=== PATIENT | female | born 1950 | race Caucasian/White ===

== ENCOUNTER 2017-08-31 16:11 | Inpatient (IN) ==
[2017-09-01 09:37] LABS: BASOPHILS % (AUTO) 0.6 % (0.2-1.0); EOSINOPHILS % (AUTO) 0.7 % (0.9-2.9); HEMATOCRIT 38.6 % (36.0-47.0); HEMOGLOBIN 13.7 g/dL (12.0-16.0); LYMPHOCYTES # (AUTO) 0.8 X10^3/uL (1.3-2.9); LYMPHOCYTES % (AUTO) 28.9 % (21.0-51.0); MEAN CORPUSCULAR HEMOGLOBIN 32.4 pg (27.0-34.0); MEAN CORPUSCULAR HGB CONC 35.4 g/dL (33.0-35.0); MEAN CORPUSCULAR VOLUME 91.6 fL (80.0-100.0); MEAN PLATELET VOLUME 8.1 fL (7.4-11.0); MONOCYTES # (AUTO) 0.2 x10^3/uL (0.3-0.8); MONOCYTES % (AUTO) 6.5 % (0.0-13.0); NEUTROPHILS # (AUTO) 1.8 x10^3/uL (2.2-4.8); NEUTROPHILS % (AUTO) 63.3 % (42.0-75.0); PLATELET COUNT 158 X10^3/uL (150.0-450.0); RED BLOOD COUNT 4.21 X10^6/uL (3.5-5.4); WHITE BLOOD COUNT 2.9 X10^3/uL (3.6-10.0)
[2017-09-01 10:01] LABS: ALANINE AMINOTRANSFERASE 35 Units/L (12-78); ALBUMIN 4.4 g/dL (3.4-5.0); ALKALINE PHOSPHATASE 89 Units/L (46-116); ASPARTATE AMINO TRANSFERASE 32 Units/L (15-37); BLOOD UREA NITROGEN 12 mg/dL (7-18); CALCIUM 9.3 mg/dL (8.5-10.1); CREATININE 0.99 mg/dL (0.55-1.02); TOTAL PROTEIN 8.3 g/dL (6.4-8.2); eGFR NON BLACK RACES 59 (>60)
[2017-09-01 10:07] LABS: CHLORIDE 76 mmol/L (98-107); SODIUM 110 mmol/L (136-145)
[2017-09-01] MEDS: NS 1000 ML 1,000 ML IV SCH ×3 (10:47→18:42)
[2017-09-01 11:43] VITALS: BMI 24.9
[2017-09-01 12:17] LABS: FREE T4 (FREE THYROXINE) 0.96 ng/dL (0.76-1.46)
--- NOTE | 2017-09-01 13:29 | DR.UPDATE ---
H&P Update History and Physical Update: RETURNED ON 08/31/2017 FOR A FOLLOW UP VISIT. LABS WERE OBTAINED AND REVEALED A SODIUM LEVEL OF 111. ORDERS FOR ADMISSION WERE GIVEN ON 08/31/17, HOWEVER, PATIENT DID NOT ARRIVE TO THE HOSPITAL UNTIL THIS MORNING. SHE REPORTS COMPLAINTS OF GENERALIZED WEAKNESS AND SHORTNESS OF BREATH. PATIENT WAS STARTED ON NORMAL SALINE AT 125ML/HR. TODAY, WE WILL OBTAIN A CHEST CT WITH CONTRAST DUE TO SHORTNESS OF BREATH, HYPONATREMIA, AND TO RULE OUT MALIGNANT PROCESS. WE WILL ALSO CHECK A URINE SODIUM LEVEL, SERUM OSMOLALITY, TSH, AND FREE T4. OTHERWISE, WE WILL FOLLOW UP WITH AM LABS AND CONTINUE TO MONITOR PATIENT. Changes noted: NO Yes with the following:
[2017-09-01] MEDS ORDERED: CATAPRES-TTS-2 TD SCH (14:00)
--- NOTE | 2017-09-01 14:25 | CT ---
HISTORY: Shortness of breath Study: CT chest with contrast Comparison: None Technique: Multiple axial images of the chest were obtained from the thoracic inlet to the upper abdo men after the administration of IV contrast. Dose reduction techniques including Automated Exposure Control (AEC) and adjustment of mA and kV were utilized. Findings: Lungs are hyperinflated with moderate centrilobular emphysematous changes present No vascular abnorma lity is identified. Normal appearance of the heart and pericardium. The aorta appears normal in cours e and caliber. The lungs are clear without effusion, consolidation, or pneumothorax. Airways are bean nt. There is a small sliding hiatal The soft tissues and osseous structures appear intact. On limited visualization of the upper abdomen bilateral renal collecting systems appear prominent. IMPRESSION: 1. Moderate emphysematous changes without acute disease. 2. Small hiatal hernia. 3. Prominence of the bilateral renal collecting systems is noted on limited visualization of the uppe r abdomen. Consider correlation with renal ultrasound if there is concern for acute obstruction. Reported By:
[2017-09-01] MEDS: COLACE CAP 100 MG PO SCH (14:45)
[2017-09-01] MEDS: LOPRESSOR TAB 25 MG PO SCH ×2 (14:45→22:10)
[2017-09-01] MEDS: ASPIRIN 81 MG CHEWTAB PO SCH (14:45)
[2017-09-01] MEDS: PROTONIX TAB 40 MG PO SCH (14:46)
[2017-09-01] MEDS: PLAVIX PO SCH (14:46)
[2017-09-01] MEDS: CHECK PATCH XX SCH (17:02)
[2017-09-01] MEDS: AMBIEN PO PRN (22:10)
[2017-09-02] MEDS: NS 1000 ML 1,000 ML IV SCH ×3 (04:28→17:42)
[2017-09-02 06:54] LABS: BASOPHILS % (AUTO) 0.4 % (0.2-1.0); EOSINOPHILS % (AUTO) 0.4 % (0.9-2.9); HEMATOCRIT 33.5 % (36.0-47.0); HEMOGLOBIN 12.3 g/dL (12.0-16.0); LYMPHOCYTES # (AUTO) 0.6 X10^3/uL (1.3-2.9); LYMPHOCYTES % (AUTO) 25.4 % (21.0-51.0); MEAN CORPUSCULAR HGB CONC 36.7 g/dL (33.0-35.0); MEAN CORPUSCULAR VOLUME 92.6 fL (80.0-100.0); MEAN PLATELET VOLUME 8.3 fL (7.4-11.0); MONOCYTES # (AUTO) 0.2 x10^3/uL (0.3-0.8); MONOCYTES % (AUTO) 6.9 % (0.0-13.0); NEUTROPHILS # (AUTO) 1.7 x10^3/uL (2.2-4.8); NEUTROPHILS % (AUTO) 66.9 % (42.0-75.0); PLATELET COUNT 127 X10^3/uL (150.0-450.0); RED BLOOD COUNT 3.61 X10^6/uL (3.5-5.4); RED CELL DISTRIBUTION WIDTH 12.9 % (11.6-16.5); WHITE BLOOD COUNT 2.5 X10^3/uL (3.6-10.0)
[2017-09-02 07:20] LABS: ALANINE AMINOTRANSFERASE 23 Units/L (12-78); ALBUMIN 3.3 g/dL (3.4-5.0); ALKALINE PHOSPHATASE 70 Units/L (46-116); ASPARTATE AMINO TRANSFERASE 18 Units/L (15-37); BLOOD UREA NITROGEN 8 mg/dL (7-18); CALCIUM 8.4 mg/dL (8.5-10.1); CARBON DIOXIDE 23.4 mmol/L (21-32); CHLORIDE 95 mmol/L (98-107); CREATININE 0.67 mg/dL (0.55-1.02); SODIUM 126 mmol/L (136-145); TOTAL PROTEIN 6.3 g/dL (6.4-8.2); eGFR NON BLACK RACES > 60 (>60)
[2017-09-02] MEDS: COLACE CAP 100 MG PO SCH (09:37)
[2017-09-02] MEDS: ASPIRIN 81 MG CHEWTAB PO SCH (09:37)
[2017-09-02] MEDS: LOPRESSOR TAB 25 MG PO SCH ×2 (09:37→21:30)
[2017-09-02] MEDS: CHECK PATCH XX SCH ×2 (09:37→21:00)
[2017-09-02] MEDS: PLAVIX PO SCH (09:38)
[2017-09-02] MEDS: PROTONIX TAB 40 MG PO SCH (09:38)
[2017-09-02] MEDS: AMBIEN PO PRN (21:33)
[2017-09-03] MEDS: NS 1000 ML 1,000 ML IV SCH (02:15)
[2017-09-03 04:31] LABS: BASOPHILS % (AUTO) 0.5 % (0.2-1.0); EOSINOPHILS % (AUTO) 0.7 % (0.9-2.9); HEMATOCRIT 31.1 % (36.0-47.0); HEMOGLOBIN 10.9 g/dL (12.0-16.0); LYMPHOCYTES # (AUTO) 0.7 X10^3/uL (1.3-2.9); LYMPHOCYTES % (AUTO) 28.6 % (21.0-51.0); MEAN CORPUSCULAR HEMOGLOBIN 32.9 pg (27.0-34.0); MEAN CORPUSCULAR HGB CONC 35.1 g/dL (33.0-35.0); MEAN CORPUSCULAR VOLUME 93.7 fL (80.0-100.0); MEAN PLATELET VOLUME 8.1 fL (7.4-11.0); MONOCYTES # (AUTO) 0.1 x10^3/uL (0.3-0.8); MONOCYTES % (AUTO) 5.7 % (0.0-13.0); NEUTROPHILS # (AUTO) 1.7 x10^3/uL (2.2-4.8); NEUTROPHILS % (AUTO) 64.5 % (42.0-75.0); PLATELET COUNT 131 X10^3/uL (150.0-450.0); RED BLOOD COUNT 3.31 X10^6/uL (3.5-5.4); RED CELL DISTRIBUTION WIDTH 13.1 % (11.6-16.5); WHITE BLOOD COUNT 2.6 X10^3/uL (3.6-10.0)
[2017-09-03 04:37] LABS: ALANINE AMINOTRANSFERASE 16 Units/L (12-78); ALBUMIN 2.9 g/dL (3.4-5.0); ALKALINE PHOSPHATASE 63 Units/L (46-116); ASPARTATE AMINO TRANSFERASE 10 Units/L (15-37); BLOOD UREA NITROGEN 6 mg/dL (7-18); CALCIUM 8.1 mg/dL (8.5-10.1); CARBON DIOXIDE 22.9 mmol/L (21-32); CHLORIDE 102 mmol/L (98-107); CREATININE 0.72 mg/dL (0.55-1.02); SODIUM 132 mmol/L (136-145); TOTAL PROTEIN 5.8 g/dL (6.4-8.2); eGFR NON BLACK RACES > 60 (>60)
[2017-09-03 08:10] VITALS: BP 137/63
[2017-09-03] MEDS: COLACE CAP 100 MG PO SCH (08:44)
[2017-09-03] MEDS: LOPRESSOR TAB 25 MG PO SCH (08:44)
[2017-09-03] MEDS: CHECK PATCH XX SCH (08:44)
[2017-09-03] MEDS: ASPIRIN 81 MG CHEWTAB PO SCH (08:44)
[2017-09-03] MEDS: PLAVIX PO SCH (08:44)
[2017-09-03] MEDS: PROTONIX TAB 40 MG PO SCH (09:16)
--- NOTE | 2017-09-03 17:01 | PCM.PROG ---
Progress Note - Progress Note for Day of Date: 09/02/17 - Subjective Subjective: WAS ADMITTED FOR HYPONATREMIA. TODAY, SHE IS ALERT AND ORIENTED, SITTING UP IN BED ON MORNING ROUNDS. SHE IS NOTED WITH COMPLAINTS OF GENERALIZED WEAKNESS. ON EXAMINATION, HEART IS REGULAR IN RATE AND RHYTHM. BILATERAL LUNGS ARE CLEAR TO AUSCULTATION. ABDOMEN IS ROUND, SOFT, AND NON- TENDER WITH NORMAL BOWEL SOUNDS NOTED IN ALL QUADRANTS. HER VITALS TODAY ARE 99.6-53-20-100%-110/57. LABS WERE OBTAINED. ABNORMAL LAB VALUES INCLUDE THE FOLLOWING: WBC 2.5, HCT 33.5, PLT COUNT 127, SODIUM INCREASED FROM 110 TO 126, CHLORIDE 95, CALCIUUM 8.4, TOTAL PROTEIN 6.3, ALBUMIN 3.3, URINE OSMOLALITY 238. CHEST CT WAS OBTAINED YESTERDAY AND REVEALED Moderate emphysematous changes without acute disease. Small hiatal hernia. Prominence of the bilateral renal collecting systems is noted on limited visualization of the upper abdomen. Consider correlation with renal ultrasound if there is concern for acute obstruction. SHE WAS RECEIVING LISINOPRIL/HCTZ AT HOME. WE WILL DISCONTINUE THIS. WE WILL CONTINUE WITH IV FLUIDS AND CURRENT PLAN OF CARE TODAY. OTHERWISE, WE WILL FOLLOW UP WITH AM LABS AND CONTINUE TO MONITOR PATIENT. - Past Medical Family Social History Past Med/Fam/Surg Hx: No changes since H&P Allergies: Allergies No Known Drug Allergies Allergy (Verified 09/01/17 08:37) - Review of Systems ROS: No change since H&P - Vital Signs and I&O's Vital Signs: Temperature 98.7 F Pulse Rate [Right Brachial] 61 Respiratory Rate 19 Blood Pressure [Right Arm] 137/63 O2 Sat by Pulse Oximetry 97 Intake and Output: Intake & Output 09/01/17 09/02/17 09/03/17 09/04/17 11:59 11:59 11:59 11:59 Intake Total 6274 / 7124 3489 / 4805 Balance 3174 / 3174 9529 / 4807 - Physical Exam Oriented: Normal Eyes: Normal Ear: Normal Nose: Normal Throat: Normal Respiratory: Normal Cardiovascular: Normal : Normal Auscultation: Bowel Sounds: Normal Palpation: Normal Tenderness: Normal Skin: Normal Musculoskeletal: Normal Psychiatric: Normal Mood Description: Calm Affect: Normal Speech Pattern: Clear, Appropriate - Laboratory and Diagnostics Result Diagrams: 09/03/17 04:10 06/24/18 04:10 Labs: Laboratory WBC 2.6 X10^3/uL (3.6-10.0) L 09/03/17 04:10 RBC 3.31 X10^6/uL (3.5-5.4) L 09/03/17 04:10 Hgb 10.9 g/dL (12.0-16.0) L 09/03/17 04:10 Hct 31.1 % (36.0-47.0) L 09/03/17 04:10 MCV 93.7 fL (80.0-100.0) 09/03/17 04:10 MCH 32.9 pg (27.0-34.0) 09/03/17 04:10 MCHC 35.1 g/dL (33.0-35.0) H 09/03/17 04:10 RDW 13.1 % (11.6-16.5) 09/03/17 04:10 Plt Count 131 X10^3/uL (150.0-450.0) L 09/03/17 04:10 MPV 8.1 fL (7.4-11.0) 09/03/17 04:10 Neut % (Auto) 64.5 % (42.0-75.0) 09/03/17 04:10 Lymph % (Auto) 28.6 % (21.0-51.0) 09/03/17 04:10 [place] % (Auto) 5.7 % (0.0-13.0) 09/03/17 04:10 Eos % (Auto) 0.7 % (0.9-2.9) L 09/03/17 04:10 Baso % (Auto) 0.5 % (0.2-1.0) 09/03/17 04:10 Neut # (Auto) 1.7 x10^3/uL (2.2-4.8) L 09/03/17 04:10 Lymph # (Auto) 0.7 X10^3/uL (1.3-2.9) L 09/03/17 04:10 [place] # (Auto) 0.1 x10^3/uL (0.3-0.8) L 09/03/17 04:10 Eos # (Auto) 0.0 x10^3/uL (0.0-0.2) 09/03/17 04:10 Baso # (Auto) 0.0 X10^3/uL (0.0-0.1) 09/03/17 04:10 Absolute Nucleated RBC 0.0 /100WBC 09/03/17 04:10 Sodium 132 mmol/L (136-145) L 09/03/17 04:10 Corrected Sodium TNP 09/03/17 04:10 Potassium 3.6 mmol/L (3.5-5.1) 09/03/17 04:10 Chloride 102 mmol/L (98-107) 09/03/17 04:10 Carbon Dioxide 22.9 mmol/L (21-32) 09/03/17 04:10 BUN 6 mg/dL (7-18) L 09/03/17 04:10 Creatinine 0.72 mg/dL (0.55-1.02) 09/03/17 04:10 Est GFR (MDRD) Af Amer > 60 (>60) 09/03/17 04:10 Est GFR (MDRD) Non-Af > 60 (>60) 09/03/17 04:10 Glucose 90 mg/dL (65-99) 09/03/17 04:10 Calculated Osmolality 238 mOsm/kg (285-295) L 09/01/17 09:25 Calcium 8.1 mg/dL (8.5-10.1) L 09/03/17 04:10 Corrected Calcium 9.0 mg/dL (8.5-10.1) 09/03/17 04:10 Total Bilirubin 0.30 mg/dL (0.2-1.0) 09/03/17 04:10 AST 10 Units/L (15-37) L 09/03/17 04:10 ALT 16 Units/L (12-78) 09/03/17 04:10 Alkaline Phosphatase 63 Units/L (46-116) 09/03/17 04:10 Total Protein 5.8 g/dL (6.4-8.2) L 09/03/17 04:10 Albumin 2.9 g/dL (3.4-5.0) L 09/03/17 04:10 Globulin 2.9 g/dL (2.5-4.5) 09/03/17 04:10 Albumin/Globulin Ratio 1.0 Ratio (1.1-2.1) L 09/03/17 04:10 Free T4 0.96 ng/dL (0.76-1.46) 09/01/17 09:25 TSH 3rd Generation 1.146 uIU/mL (0.358-3.74) 09/01/17 09:25 Ur Random Sodium < 50 mmol/L (40-220) 09/01/17 18:41 - Plan (1) Hyponatremia Status: Acute Plan: CONTINUE IV FLUIDS, CONTINUE TO MONTIOR
--- NOTE | 2017-10-02 01:11 | DR.CARTERD ---
- Discharge Summary for: Discharge Summary for Date of:: 09/03/17 - Admission Date Date of Admission: 09/01/17 - Discharge Date Discharge Date: 09/03/17 - Hospital Course Hospital Course: Ms. Winchester presented to the hospital as a direct admission following a follow up office visit. Patient reported was recently in the hospital with hyponatremia and was seen last week for follow up labs. Patient presented earlier this day for lab results and was noted with a critically low sodium. Patient reported weakness and shortness of breath. Patient admitted to the hospital for rehydration. Labs obtained on arrival revealed a critically low sodium of 110. Patient started on IV fluids at 125ml/hr. A chest Ct was obtained on admission due to shortness of breath and to rule out a malignant process which revealed moderate emphysematous changes without acute disease, small hiatal hernia, and prominence of the bilateral renal collecting systems. Medical History: COPD, Skin CA, Depression. Abnormal Labs: WBC 2.9, MCHC 35.4, Sodium 110, Chloride 76, Calculated Osmolality 238, Total Protein 8.3. Chest CT : Moderate emphysematous changes without acute disease. Small hiatal hernia. Prominence of the bilateral renal collecting systems is noted on limited visualization of the upper abdomen. Consider correlation with renal ultrasound if there is concern for acute obstruction. On day two, patient was alert and oriented. She was noted with complaints of generalized weakness. On examination , heart was regulat in rate and rhythm; bilateral lungs were clear to auscultation; abdomen was round, soft, and non-tender with normal bowel sounds throughout. Vitals were 99.6-53-20-100%-110/57. Abnormal labs were: WBC 2.5, HCT 33.5, PLT COUNT 127, SODIUM INCREASED FROM 110 TO 126, CHLORIDE 95, CALCIUUM 8.4, TOTAL PROTEIN 6.3, ALBUMIN 3.3, URINE OSMOLALITY 238. We discontinued home medication of Lisinopril/HCTZ. We continued with IV fluids and monitored. On day three, Sodium was 132. Patient reported she was feeling better after receiving IV fluids. She denied shortness of breath. On auscultation, lungs were clear. Vital signs stable. Labs improved. We planned for discharge. Instructions for medications and follow up were discussed with patient and family, both voiced understanding. Patient discharged home in stable condition with family. - Discharge Medications Discharge Medications: Home Medication List aspirin 81 mg PO DAILY 09/01/17 [History] clonidine 1 patch TRANSDERMAL WEEKLY 09/01/17 [History] clopidogrel 1 tab PO DAILY 09/01/17 [History] docusate sodium 100 mg PO DAILY 09/01/17 [History] metoprolol tartrate 1 tab PO BID 09/01/17 [History] pantoprazole 1 tab PO DAILY 09/01/17 [History] zolpidem 1 tab PO HS PRN 09/01/17 [History] lisinopril 10 mg PO DAILY #30 tab 09/03/17 [Rx] Prescriptions: lisinopril Bob Quinones - Discharge Disposition Discharge Disposition: Patient is to follow up in our office in one week.
== END 2017-09-03 09:40 | disposition home or self-care (01) | DRG 641 ==
LOC: OBS 09-01 07:30
PROVIDERS: ADMIT Internal Medicine; ATTEND Internal Medicine
DX: E87.1 Hypo-osmolality and hyponatremia; K44.9 Diaphragmatic hernia without obstruction or gangrene; R26.89 Other abnormalities of gait and mobility; R53.1 Weakness; J44.9 Chronic obstructive pulmonary disease, unspecified; R53.83 Other fatigue; R06.02 Shortness of breath; M54.5 Low back pain; I10 Essential (primary) hypertension
CPT/HCPCS: 36415; 71260; 80053; 83520; 84300; 84439; 84443; 85025; 97162; A4222; J7030